=== PATIENT | female | born 1950 | race African-American/Black ===

== ENCOUNTER 2016-07-19 12:01 | Emergency (ER) | payer OTHER ==
[~2016-07-19 12:01] MED LIST: ASAB PO; COREG3 PO; CRESTOR10 PO; DIOV80 PO; DIOVAN HCT PO; LANTUS SC; LISINOP/HCTZ1 TAB OR; MULTIVITAMI1 PO; NEUR600 PO; PLAVIX PO; TRAVATAN Z0.004 % OPH; ZOCOR20 PO; ZOCOR40 PO
== END 2016-07-19 13:30 | disposition home or self-care (01) ==
LOC: ER 12:01
DX: R07.89 Other chest pain (principal); I25.2 Old myocardial infarction; E11.9 Type 2 diabetes mellitus without complications; Z95.1 Presence of aortocoronary bypass graft; Z86.73 Personal history of transient ischemic attack (TIA), and cerebral infarction without residual deficits; Z87.891 Personal history of nicotine dependence; Z88.2 Allergy status to sulfonamides; Z79.82 Long term (current) use of aspirin; Z79.4 Long term (current) use of insulin; Z79.899 Other long term (current) drug therapy
CPT/HCPCS: 71010; 93005; 99285